=== PATIENT | female | born 1985 | race Caucasian/White ===

== ENCOUNTER 2022-05-18 08:05 | Inpatient (IN) | payer OTHER ==
[~2022-05-18] VITALS: Ht 180.3 cm; Wt 138.3 kg
--- NOTE | 2022-05-18 11:56 | PR ---
[facility] [address] [place], [place] [address] Signed Progress Notes IP Datetime Report Generated by CPN: 05/18/2022 11:56 PROGRESS NOTES: [id number] Impression: Normal Progression of Labor Procedures: Artificial ROM Plan: Continue Present Management; Anticipate Vaginal Delivery VITAL SIGNS: [id number] Vital Signs: Reviewed; Within Normal Limits EXAM: [id number] Dilatation: 4.0 Effacement: 50 Station: -3 Contractions: rare MEMBRANES: [id number] Membranes Status: Ruptured Comments: Doing well, without complaint, considering Epidural later. FETUS A: [id number] FHR Baseline: 120 Variability: Moderate 6-25bpm Accelerations: 15X15 Presentation: Vertex FETUS B: [id number] Signing Physician: Lorena Mc MD Copies: ~ *Electronically Signed* 05/18/22 1156 LORENA MC MD PATIENT NAME: SHOSHANA KING PROGRESS NOTE DATE OF : 87 PHYSICIAN: LORENA MC MD RPT #: [id number] REPORT IS CONFIDENTIAL AND NOT TO BE RELEASED WITHOUT AUTHORIZATION
--- NOTE | 2022-05-19 12:20 | PR ---
[facility] [address] [facility] [address] [place] [address] Signed PP Progress Notes Datetime Report Generated by CPN: 05/19/2022 12:20 SUBJECTIVE: [id number] Pain: Within Normal Limits Nausea/Vomiting: Denies Vital Signs: [id number] Vital Signs: Reviewed; Within Normal Limits Notable Details: PP HGb/Hct = 11.2/33.6 EXAM: Met Abdomen/Uterus: Normal Lochia: Normal Extremities: Normal IMPRESSION/PLAN/PROCEDURES: [id number] Impression: Normal Progression Plan: Discharge Procedures: None Progress Notes: Doing well, without complaint, ready to go home. Signing Physician: Lorena Mc MD Copies: ~ *Electronically Signed* 05/19/22 1220 LORENA MC MD PATIENT NAME: SHOSHANA KING PROGRESS NOTE DATE OF : 87 PHYSICIAN: LORENA MC MD RPT #: [id number] REPORT IS CONFIDENTIAL AND NOT TO BE RELEASED WITHOUT AUTHORIZATION
== END 2022-05-19 17:57 | disposition home or self-care (01) | DRG 807 ==
LOC: FBC 08:05
PROVIDERS: ADMIT General Practice; ATTEND General Practice
PROC: 10E0XZZ Delivery of Products of Conception, External Approach (ICD-10-PCS; principal; 2022-05-18)
PROC: 10907ZC Drainage of Amniotic Fluid, Therapeutic from Products of Conception, Via Natural or Artificial Opening (ICD-10-PCS; 2022-05-18)
PROC: 3E0R3BZ Introduction of Anesthetic Agent into Spinal Canal, Percutaneous Approach (ICD-10-PCS; 2022-05-18)
PROC: 00HU33Z Insertion of Infusion Device into Spinal Canal, Percutaneous Approach (ICD-10-PCS; 2022-05-18)
DX: O42.02 Full-term premature rupture of membranes, onset of labor within 24 hours of rupture (principal); Z37.0 Single live birth; Z79.899 Other long term (current) drug therapy; Z3A.39 39 weeks gestation of pregnancy
CPT/HCPCS: 01960; 36415; 83030; 85027; 86850; 86870; 86900; 86901; J2001; J2405; J2590; J2790; J2795; J7121